=== PATIENT | male | born 2000 ===

== ENCOUNTER 2022-07-22 16:35 | Outpatient (REF) | payer SELFPAY ==
[2022-07-23 12:54] LABS: Hemoglobin S Screen Negative (Negative)
== END 2022-07-22 16:36 | disposition home or self-care (01) ==
LOC: LBN 16:35
PROVIDERS: Visit Provider Physician Assistant Medical
DX: Z13.0 Encounter for screening for diseases of the blood and blood-forming organs and certain disorders involving the immune mechanism (principal)
CPT/HCPCS: 85660